=== PATIENT | male | born 1945 | race Caucasian/White ===

== ENCOUNTER 2018-10-25 12:10 | Inpatient (IN) | payer MEDICARE ==
[~2018-10-25] VITALS: Ht 175.3 cm; Wt 76.8 kg
[2018-10-25] MEDS ORDERED: LISI-170 PO (12:26)
[2018-10-25] MEDS ORDERED: METO-93 PO (12:27)
[2018-10-25] MEDS ORDERED: AMLO10TA8 PO (12:28)
[2018-10-25] MEDS ORDERED: APIX5TAB PO (12:28)
[2018-10-25] MEDS ORDERED: CHOL2000 PO (12:29)
[2018-10-25] MEDS ORDERED: ALBU18HF INH (12:29)
[2018-10-25] MEDS ORDERED: METF500T17 PO (12:29)
[2018-10-25] MEDS ORDERED: ATOR-2 PO (12:29)
[2018-10-25] MEDS ORDERED: POTA10CA PO (12:29)
[2018-10-25] MEDS ORDERED: ASPI325T17 PO (12:29)
--- NOTE | 2018-10-25 12:29 | NUR ---
ER PROVIDER IN TO EVAL PT, DAUGHTER AT BEDSIDE, NAD AT THIS TIME
[2018-10-25] MEDS ORDERED: DILTIAZEM 5 MG/ML, 5ML ONE (12:44)
[2018-10-25 12:54] LABS: BASOPHILS # (AUTO) 0.03 x10^3/uL (0-0.1); BASOPHILS % (AUTO) 0 % (0-1); EOSINOPHILS % (AUTO) 0 % (1-7); LYMPHOCYTES # (AUTO) 0.66 x10^3/uL (1-3.4); LYMPHOCYTES % (AUTO) 7 % (22-44); MD NO; MEAN CORPUSCULAR HEMOGLOBIN 28.9 pg (27.5-34.5); MEAN CORPUSCULAR HGB CONC 33.3 g/dL (33.2-36.2); MEAN CORPUSCULAR VOLUME 86.8 fL (81-97); MEAN PLATELET VOLUME 8.8 fL (7.4-10.4); MONOCYTES # (AUTO) 0.41 x10^3/uL (0.2-0.8); MONOCYTES % (AUTO) 5 % (2-9); NEUTROPHILS # (AUTO) 7.92 x10^3/uL (1.8-6.8); NEUTROPHILS % (AUTO) 88 % (42-75); PLATELET COUNT 210 x10^3/uL (130-400); RED BLOOD COUNT 2.99 x10^6/uL (4.38-5.82); RED CELL DISTRIBUTION WIDTH 17.5 % (9.4-14.8)
--- NOTE | 2018-10-25 12:56 | NUR ---
PT REPORTS HAVING DARK TARRY STOOL X2 DAYS, HGB 8.6. ER MD UPDATED.
[2018-10-25] MEDS ORDERED: DILTIAZEM 125 MG in SODIUM CHLORIDE 0.9% 100 ML IV SCH (13:00)
[2018-10-25] MEDS ORDERED: PLEASE ENTER ALLERGIES MC SCH (13:00)
[2018-10-25] MEDS ORDERED: DILTIAZEM 5 MG/ML, 5ML IV ONE (13:00)
[2018-10-25 13:03] LABS: ALBUMIN 3.2 g/dL (3.4-5.0); CALCIUM 7.9 mg/dL (8.5-10.1); CREATININE 0.82 mg/dL (0.7-1.3)
[2018-10-25 13:07] LABS: TROPONIN I < 0.015 ng/mL (0.000-0.045)
[2018-10-25 13:12] LABS: ANION GAP 10 mmol/L (5-15); CHLORIDE 115 mmol/L (98-107)
[2018-10-25] MEDS ORDERED: NS + 20MEQ KCL 1,000 ML IV ONE (13:49)
[2018-10-25] MEDS ORDERED: DEXTROSE 50%, 50ML SYRINGE IVPush PRN (14:00)
[2018-10-25] MEDS ORDERED: GLUCAGON 1 MG IM PRN (14:00)
[2018-10-25] MEDS ORDERED: morphine SULFATE 10 MG/ML, 1ML IVPush PRN (14:00)
[2018-10-25] MEDS ORDERED: SODIUM CHLORIDE 0.9%, 500ML IVBOLUS ONE (14:00)
[2018-10-25] MEDS ORDERED: DEXTROSE 4 GM TAB.CHEW PO PRN (14:00)
[2018-10-25] MEDS ORDERED: hydrALAzine 20 MG/ML, 1ML IVPush PRN (14:00)
[2018-10-25] MEDS ORDERED: OXYcodone IR 5MG TABLET PO PRN (14:00)
[2018-10-25] MEDS ORDERED: ACETAMINOPHEN 325 MG TABLET PO PRN (14:00)
--- NOTE | 2018-10-25 14:02 | NUR ---
BREAK RN: SPOKE WITH DR. POOLE, STATES TO CHANGE DILTIAZEM INFUSION TO 15ML/HR. INFUSION CHANGED AT THIS TIME.
[2018-10-25 14:24] LABS: TROPONIN I < 0.015 ng/mL (0.000-0.045)
--- NOTE | 2018-10-25 14:38 | NUR ---
REPORT GIVEN TO JANESSA MENDIETA. AWAITING TRANSPORT.
[2018-10-25] MEDS: NS + 20MEQ KCL 1,000 ML IV SCH ×2 (14:56→23:28)
[2018-10-25 16:12] VITALS: BP 96/62
[2018-10-25] MEDS: INSULIN LISPRO 100 UNITS/ML, PEN SQ-INSULIN SCH ×2 (16:44→19:40)
[2018-10-25 17:22] VITALS: BP 99/62
[2018-10-25] MEDS: DILTIAZEM 125 MG in SODIUM CHLORIDE 0.9% 100 ML IV SCH ×2 (17:22→23:27)
[2018-10-25 18:35] VITALS: BP 99/61
[2018-10-25] MEDS: SODIUM CHLORIDE FLUSH 10ML SYR IVF SCH (19:40)
[2018-10-25 19:50] VITALS: BP 95/60
[2018-10-25] MEDS: METOPROLOL SUCCINATE 50 MG TAB.ER.24H PO SCH (21:00)
[2018-10-26] VITALS (14 sets, daily range): BP systolic 96–109; BP diastolic 55–71
[2018-10-26 00:54] LABS: TROPONIN I < 0.015 ng/mL (0.000-0.045)
[2018-10-26 05:28] LABS: INTERNATIONAL NORMALIZED RATIO 1.1 (0.93-1.1); PROTHROMBIN TIME 11.5 Seconds (9.6-11.5)
[2018-10-26 05:38] LABS: ANION GAP 8 mmol/L (5-15); CALCIUM 7.7 mg/dL (8.5-10.1); CHLORIDE 119 mmol/L (98-107)
[2018-10-26 05:44] LABS: MEAN CORPUSCULAR HEMOGLOBIN 29.2 pg (27.5-34.5); MEAN CORPUSCULAR HGB CONC 33.6 g/dL (33.2-36.2); MEAN PLATELET VOLUME 7.9 fL (7.4-10.4); PLATELET COUNT 148 x10^3/uL (130-400); RED BLOOD COUNT 2.23 x10^6/uL (4.38-5.82)
[2018-10-26 05:49] LABS: CREATININE 0.73 mg/dL (0.7-1.3)
[2018-10-26 06:45] LABS: <PLATELET ESTIMATE> ADEQUATE; <PLT MORPHOLOGY> NORMAL PLT MORPH; ANISOCYTOSIS 1+; BASOPHILS # (AUTO) 0.02 x10^3/uL (0-0.1); BASOPHILS % (AUTO) 0 % (0-1); EOSINOPHILS % (AUTO) 0 % (1-7); LYMPHOCYTES # (AUTO) 0.88 x10^3/uL (1-3.4); LYMPHOCYTES % (AUTO) 15 % (22-44); MD MORPH REVIEW ONLY; MONOCYTES # (AUTO) 0.44 x10^3/uL (0.2-0.8); MONOCYTES % (AUTO) 7 % (2-9); NEUTROPHILS # (AUTO) 4.72 x10^3/uL (1.8-6.8); NEUTROPHILS % (AUTO) 78 % (42-75); OVALOCYTES 1+; POLYCHROMASIA 1+
[2018-10-26 06:46] LABS: HYPOCHROMIA 1+
[2018-10-26] MEDS: INSULIN LISPRO 100 UNITS/ML, PEN SQ-INSULIN SCH ×4 (07:00→20:36)
[2018-10-26] MEDS: METOPROLOL SUCCINATE 50 MG TAB.ER.24H PO SCH ×2 (08:21→20:32)
[2018-10-26] MEDS: SODIUM CHLORIDE FLUSH 10ML SYR IVF SCH ×2 (08:22→20:32)
[2018-10-26] MEDS: NS + 20MEQ KCL 1,000 ML IV SCH ×2 (10:11→20:04)
[2018-10-26] MEDS ORDERED: ONDANSETRON 2MG/ML, 2ML IV PRN (11:30)
[2018-10-26] MEDS ORDERED: MIDAZOLAM 1 MG/ML, 2ML IV PRN (11:30)
[2018-10-26] MEDS ORDERED: METOPROLOL 1 MG/ML, 5ML IV PRN (11:30)
[2018-10-26] MEDS ORDERED: OXYcodone 5 MG/5 ML ORAL.SOL UDC PO PRN (11:30)
[2018-10-26] MEDS ORDERED: FENTANYL PF 100 MCG/2ML IV PRN (11:30)
[2018-10-26] MEDS ORDERED: hydrALAzine 20 MG/ML, 1ML IV PRN (11:30)
[2018-10-26] MEDS: OMEPRAZOLE 20 MG CAPSULE.DR PO SCH ×2 (12:45→16:05)
[2018-10-26] MEDS ORDERED: DILTIAZEM 125 MG in SODIUM CHLORIDE 0.9% 100 ML IV SCH (13:00)
[2018-10-26] MEDS: DILTIAZEM 125 MG in SODIUM CHLORIDE 0.9% 100 ML IV SCH (13:27)
[2018-10-26] MEDS ORDERED: PROPOFOL 10 MG/ML, 20ML ONE (15:46)
[2018-10-26] MEDS ORDERED: PROPOFOL 10 MG/ML, 50ML ONE (15:46)
[2018-10-26] MEDS ORDERED: TEMAZEPAM 15 MG CAPSULE PO PRN (21:00)
[2018-10-27] VITALS (9 sets, daily range): BP systolic 90–108; BP diastolic 52–64
[2018-10-27] MEDS: OMEPRAZOLE 20 MG CAPSULE.DR PO SCH ×2 (06:05→17:13)
[2018-10-27] MEDS: INSULIN LISPRO 100 UNITS/ML, PEN SQ-INSULIN SCH ×4 (07:40→21:00)
[2018-10-27] MEDS: METOPROLOL SUCCINATE 50 MG TAB.ER.24H PO SCH ×2 (07:44→21:21)
[2018-10-27] MEDS: SODIUM CHLORIDE FLUSH 10ML SYR IVF SCH ×2 (07:45→21:21)
[2018-10-27 12:46] LABS: ANION GAP 6 mmol/L (5-15); CALCIUM 7.9 mg/dL (8.5-10.1); CHLORIDE 116 mmol/L (98-107); CREATININE 0.77 mg/dL (0.7-1.3)
[2018-10-27] MEDS ORDERED: DILTIAZEM 125 MG in SODIUM CHLORIDE 0.9% 100 ML IV SCH (13:00)
[2018-10-27] MEDS ORDERED: ALBUTEROL SULFATE 2.5 MG/3 ML ONE (13:30)
[2018-10-27] MEDS ORDERED: ALBUTEROL SULFATE 2.5 MG/3 ML NPPB PRN (14:00)
[2018-10-28 00:29] VITALS: BP 105/67
[2018-10-28] MEDS: OMEPRAZOLE 20 MG CAPSULE.DR PO SCH ×2 (05:30→17:28)
[2018-10-28 07:11] VITALS: BP 103/63
[2018-10-28] MEDS: INSULIN LISPRO 100 UNITS/ML, PEN SQ-INSULIN SCH ×4 (07:56→21:00)
[2018-10-28] MEDS: SODIUM CHLORIDE FLUSH 10ML SYR IVF SCH ×2 (07:58→21:28)
[2018-10-28] MEDS: METOPROLOL SUCCINATE 50 MG TAB.ER.24H PO SCH ×2 (07:58→21:28)
[2018-10-28 13:13] VITALS: BP 103/66
[2018-10-28 19:03] VITALS: BP 113/72
[2018-10-29 01:00] VITALS: BP 110/69
[2018-10-29 05:09] LABS: ANION GAP 5 mmol/L (5-15); CALCIUM 7.9 mg/dL (8.5-10.1); CHLORIDE 112 mmol/L (98-107); CREATININE 0.84 mg/dL (0.7-1.3)
[2018-10-29] MEDS: OMEPRAZOLE 20 MG CAPSULE.DR PO SCH ×2 (05:48→16:59)
[2018-10-29 06:40] LABS: MEAN CORPUSCULAR HEMOGLOBIN 29.6 pg (27.5-34.5); MEAN CORPUSCULAR HGB CONC 33.6 g/dL (33.2-36.2); MEAN PLATELET VOLUME 9.2 fL (7.4-10.4); PLATELET COUNT 153 x10^3/uL (130-400); RED BLOOD COUNT 2.49 x10^6/uL (4.38-5.82); RED CELL DISTRIBUTION WIDTH 17.4 % (9.4-14.8)
[2018-10-29 06:42] LABS: BASOPHILS % (AUTO) 0 % (0-1); EOSINOPHILS # (AUTO) 0.04 x10^3/uL (0-0.4); EOSINOPHILS % (AUTO) 1 % (1-7); LYMPHOCYTES # (AUTO) 0.77 x10^3/uL (1-3.4); LYMPHOCYTES % (AUTO) 23 % (22-44); MD SCAN; MONOCYTES # (AUTO) 0.41 x10^3/uL (0.2-0.8); MONOCYTES % (AUTO) 12 % (2-9); NEUTROPHILS # (AUTO) 2.12 x10^3/uL (1.8-6.8); NEUTROPHILS % (AUTO) 63 % (42-75)
[2018-10-29] MEDS: INSULIN LISPRO 100 UNITS/ML, PEN SQ-INSULIN SCH ×4 (07:00→21:00)
[2018-10-29 07:14] VITALS: BP 101/57
[2018-10-29] MEDS: METOPROLOL SUCCINATE 50 MG TAB.ER.24H PO SCH ×2 (08:46→20:47)
[2018-10-29] MEDS: DIGOXIN 0.25 MG TABLET PO SCH (08:46)
[2018-10-29] MEDS: SODIUM CHLORIDE FLUSH 10ML SYR IVF SCH ×2 (08:46→20:47)
[2018-10-29] MEDS ORDERED: PHARMACY INSTRUCTION MC ONE (10:30)
[2018-10-29] MEDS ORDERED: IRON DEXTRAN COMPLEX IV ONE (11:00)
[2018-10-29] MEDS ORDERED: SODIUM CHLORIDE 0.9% IV ONE (11:00)
[2018-10-29] MEDS ORDERED: IRON DEXTRAN COMPLEX 25 MG in SODIUM CHLORIDE 0.9% 50 ML IV ONE (11:00)
[2018-10-29] MEDS ORDERED: EPINEPHRINE SYRINGE 0.1 MG/ML, 10ML ONE (11:06)
[2018-10-29 14:35] VITALS: BP 125/77
[2018-10-29] MEDS ORDERED: HEMORRHOIDAL OINT, 28 GM (PREP H) RC PRN (17:00)
[2018-10-29 18:57] VITALS: BP 113/72
[2018-10-30 00:27] VITALS: BP 109/65
[2018-10-30] MEDS: OMEPRAZOLE 20 MG CAPSULE.DR PO SCH (06:01)
[2018-10-30] MEDS: INSULIN LISPRO 100 UNITS/ML, PEN SQ-INSULIN SCH ×2 (07:00→11:00)
[2018-10-30 07:01] VITALS: BP 103/60
[2018-10-30] MEDS: DIGOXIN 0.25 MG TABLET PO SCH (08:22)
[2018-10-30] MEDS: METOPROLOL SUCCINATE 50 MG TAB.ER.24H PO SCH (08:22)
[2018-10-30] MEDS: SODIUM CHLORIDE FLUSH 10ML SYR IVF SCH (08:24)
== END 2018-10-30 14:33 | disposition left against medical advice (07) | DRG 308 ==
LOC: ED 13:21 → EDIP 13:22 → ED 13:38 → 5SO 14:48
PROVIDERS: ADMIT Internal Medicine; ATTEND Internal Medicine
PROC: 0W3P8ZZ Control Bleeding in Gastrointestinal Tract, Via Natural or Artificial Opening Endoscopic (ICD-10-PCS; 2018-10-26)
PROC: 30233N1 Transfusion of Nonautologous Red Blood Cells into Peripheral Vein, Percutaneous Approach (ICD-10-PCS; principal; 2018-10-26 16:30)
DX: I48.91 Unspecified atrial fibrillation (principal); K29.81 Duodenitis with bleeding; K25.4 Chronic or unspecified gastric ulcer with hemorrhage; D62 Acute posthemorrhagic anemia; I10 Essential (primary) hypertension; E11.9 Type 2 diabetes mellitus without complications; R13.10 Dysphagia, unspecified; D50.9 Iron deficiency anemia, unspecified; T45.515A Adverse effect of anticoagulants, initial encounter; E78.5 Hyperlipidemia, unspecified; J44.9 Chronic obstructive pulmonary disease, unspecified; Z79.01 Long term (current) use of anticoagulants; Z88.8 Allergy status to other drugs, medicaments and biological substances; Z88.0 Allergy status to penicillin; Z91.013 Allergy to seafood; Z79.4 Long term (current) use of insulin; Y92.89 Other specified places as the place of occurrence of the external cause
CPT/HCPCS: 36415; 36430; 71045; 80048; 82040; 82728; 82962; 83540; 83550; 84443; 84484; 85014; 85018; 85025; 85610; 86850; 86900; 86923; 93005; 94640; 96365; 96366; 96375; G0378; J1750; J2704; J3480; J7040; J7050; P9016

== ENCOUNTER → 2020-01-05 | Outpatient (CLI) | payer MEDICARE ==
[~2020-01-05] MED LIST: ALBU18HF INH; AMLO10TA8 PO; APIX5TAB PO; ASPI325T17 PO; ATOR-2 PO; ATOR40TA78 PO; CHOL2000 PO; LIDO700A20 TD; LISI-170 PO; METF500T17 PO; METO-93 PO; OMNIPAQUE 350 MG/ML, 100ML BOTTLE ONE; PANT40TA6 PO; POTA10CA PO
== END | disposition home or self-care (01) ==
LOC: CFH 14:17
PROVIDERS: ATTEND Psychiatry & Neurology Neurology
DX: I77.71 Dissection of carotid artery (principal)
CPT/HCPCS: 70498; 82565; Q9967